=== PATIENT | male | born 1955 | race African-American/Black ===

== ENCOUNTER 2018-06-10 13:20 | Emergency (ER) | payer OTHER ==
[2018-06-10] MEDS ORDERED: NS 1,000 ML IV ONE (14:49)
[2018-06-10 15:06] LABS: PLATELET COUNT 206 10^3/uL (150-400)
--- NOTE | 2018-06-10 15:11 | EDPHY ---
HPI/HX/ROS/PE/MDM Narrative: CHIEF COMPLAINT: Lethargy HPI: The patient is a 63 y/o male with no known medical history who arrives from urgent care complaining of persistent fatigue and lethargy for the last 2 weeks since moving to [place] from [place]. He describes associated nausea, global weakness, loss of appetite, lack of energy, and generally feeling like he wants to lie in bed all day. He denies specific pain, though does have baseline back stiffness. He mentions dark urine, but no dysuria or gross hematuria. No fever, cough, shortness of breath, chest pain, vomiting, or diarrhea. He has a family history of hypertension and diabetes. He has never been to [place] previously. REVIEW OF SYSTEMS: A comprehensive 10 system review of systems is otherwise negative aside from elements mentioned in the history of present illness. PMH: Denies SOCIAL HISTORY: Moved here from [place] 2 weeks ago, employed as a computer aided design technician. PHYSICAL EXAM: General:Patient is alert, in no acute distress. ENT:Eyes are normal to inspection. ENT inspection normal. Neck: Normal inspection. Full range of motion. Respiratory:No respiratory distress. Breath sounds normal bilaterally. Cardiovascular: Regular rate and rhythm. Strong peripheral pulses. Normal cap refill. Abdomen:The abdomen is nontender to palpation. There are no peritoneal signs. Back: Normal to inspection. No tenderness to palpation. Skin: Normal color. No rash. Warm and dry. Extremities: Normal appearance. Full range of motion. Neuro: Oriented x3. Normal motor function. Normal sensory function. ED Course: This is a 63 y/o male with no reported medical conditions who presents with a 2- week history of lethargy and fatigue since moving to [place] from [place]. He has an unremarkable exam. No evidence of sepsis. Plan for IV, labs, EKG, chest x-ray. 1L IV NS ordered. The 12 lead EKG was interpreted by myself. See hard copy and/or "tracemaster" electronic copy for interpretation. Chest x-ray: no infiltrate. Reassessed patient and discussed findings. Labs are unremarkable. Discussed further treatment options, but he declines and would like to return home. Recommended following up with a PCP this week. Return precautions discussed. MDM: This patient presents with generalized fatigue in the absence of infectious symptoms or pain. We performed an extensive workup which reveals no signs of anemia, ACS, sepsis, diabetes or electrolyte disturbance. His CXR was read as possible resolving PNA, but patient adamant he has had no fever or cough or respiratory symptoms, so this seems unlikely. I informed the patient that our workup is negative and that the etiology of his symptoms is unknown. He declines treatment with antibiotics or further workup. - Data Points Imaging Results: Imaging Impressions Chest X-Ray 06/10/18 14:49 Impression: Possible resolving left lower lobe infiltrate. Imaging: I viewed and interpreted images myself Laboratory Results: Laboratory Results 06/10/18 14:55 06/10/18 14:55 06/10/18 06/10/18 06/10/18 14:58 14:55 14:55 WBC 12.89 10^3/uL H 10^3/uL (3.80-9.50) RBC 5.32 10^6/uL 10^6/uL (4.40-6.38) Hgb 15.9 g/dL g/dL (13.7-17.5) Hct 48.3 % % (40.0-51.0) MCV 90.8 fL fL (81.5-99.8) MCH 29.9 pg pg (27.9-34.1) MCHC 32.9 g/dL g/dL (32.4-36.7) RDW 14.6 % % (11.5-15.2) Plt Count 206 10^3/uL 10^3/uL (150-400) MPV 10.1 fL fL (8.7-11.7) Neut % (Auto) 88.1 % H % (39.3-74.2) Lymph % (Auto) 4.3 % L % (15.0-45.0) [place]verse % (Auto) 6.7 % % (4.5-13.0) Eos % (Auto) 0.0 % L % (0.6-7.6) Baso % (Auto) 0.2 % L % (0.3-1.7) Nucleat RBC Rel Count 0.0 % % (0.0-0.2) Absolute Neuts (auto) 11.36 10^3/uL H 10^3/uL (1.70-6.50) Absolute Lymphs (auto) 0.55 10^3/uL L 10^3/uL (1.00-3.00) Absolute Monos (auto) 0.86 10^3/uL H 10^3/uL (0.30-0.80) Absolute Eos (auto) 0.00 10^3/uL L 10^3/uL (0.03-0.40) Absolute Basos (auto) 0.03 10^3/uL 10^3/uL (0.02-0.10) Absolute Nucleated RBC 0.00 10^3/uL 10^3/uL (0-0.01) Immature Gran % 0.7 % % (0.0-1.1) Immature Gran # 0.09 10^3/uL 10^3/uL (0.00-0.10) RBC/WBC/PLT Morphology TNP Platelet Estimate TNP Sodium 136 mEq/L mEq/L (135-145) Potassium 4.1 mEq/L mEq/L (3.5-5.2) Chloride 103 mEq/L mEq/L (97-110) Carbon Dioxide 26 mEq/l mEq/l (22-31) Anion Gap 7 mEq/L mEq/L (6-14) BUN 23 mg/dL mg/dL (7-23) Creatinine 1.3 mg/dL mg/dL (0.7-1.3) Estimated GFR 55 Glucose 122 mg/dL H mg/dL (70-100) Calcium 9.3 mg/dL mg/dL (8.5-10.4) POC Troponin I 0.00 ng/mL ng/mL (0.00-0.08) Medications Given: Discontinued Medications Sodium Chloride (Ns) 1,000 mls @ 0 mls/hr IV EDNOW ONE; Wide Open PRN Reason: Protocol Stop: 06/10/18 14:50 Last Admin: 06/10/18 15:02 Dose: 1,000 mls Point of Care Test Results: Chemistry 06/10/18 14:58 POC Troponin I 0.00 ng/mL ng/mL (0.00-0.08) General Time Seen by Provider: 06/10/18 14:47 Initial Vital Signs: Initial Vital Signs Temperature (C) 36.4 C 06/10/18 13:28 Heart Rate 79 06/10/18 13:28 Respiratory Rate 18 06/10/18 13:28 Blood Pressure 137/87 H 06/10/18 13:28 O2 Sat (%) 91 L 06/10/18 13:28 O2 Delivery Mode Room Air Allergies/Adverse Reactions: No Known Allergies Allergy (Unverified 06/10/18 13:28) Home Medications: Medication Instructions Recorded NK [No Known Home Meds] 06/10/18 Departure - Departure Disposition: Home, Routine, Self-Care Clinical Impression: Fatigue Qualifiers: Fatigue type: other Qualified Code(s): R53.83 - Other fatigue Condition: Good Instructions: Fatigue (ED) Additional Instructions: 1. Increase fluid intake significantly while at altitude. 2. Follow up with a primary care provider this week to establish care and for follow up assessment. You've been referred to Dr. Lewis locally. 3. Return to the ED for any worsening of condition. Referrals: Ramya Lewis MD [Medical Doctor] - As per Instructions [facility],. [Clinic] - As per Instructions Report Scribed for: Javier Castellano Report Scribed by: Cindy Charles Date of Report: 06/10/18 Time of Report: 15:13 Physician Review and Approval Statement: Portions of this note were transcribed by an ED scribe. I personally performed the history, physical exam, and medical decision making; and confirm the accuracy of the information in the transcribed note.
[2018-06-10 16:30] VITALS: BP 128/71
--- NOTE | 2018-06-10 22:01 | CPEKG ---
Test Reason : OPEN Blood Pressure : / mmHG Vent. Rate : 085 BPM Atrial Rate : 085 BPM P-R Int : 143 ms QRS Dur : 095 ms QT Int : 376 ms P-R-T Axes : 032 001 058 degrees QTc Int : 447 ms Sinus rhythm Confirmed by Javier Castellano ([id number]) on 06/10/2018 10:00:35 PM Referred By: Javier Castellano Confirmed By:Javier Castellano
== END 2018-06-10 16:34 | disposition home or self-care (01) ==
DX: R53.83 Other fatigue (principal)
CPT/HCPCS: 84484-ER